=== PATIENT | female | born 1925 | race Caucasian/White ===

== ENCOUNTER 2017-07-16 17:29 | Emergency (ER) | payer MEDICARE, MEDICAID ==
--- NOTE | 2017-07-16 20:17 | EDM.PDOC ---
ED HPI GENERAL MEDICAL PROBLEM - General Chief Complaint: Chest Pain Stated Complaint: CHEST PAIN Time Seen by Provider: 07/16/17 17:47 Source of Information: Reports: Patient, EMS, Family History Limitations: Reports: No Limitations - History of Present Illness INITIAL COMMENTS - FREE TEXT/NARRATIVE: 89 y.o w f with H/O CAD came to the ed after she had sever SSCP, nonradiating with diaphoresis, SOB and being very pale as per family. EMS was called, gave 4 baby ASA (324 mg) and the pain subsided as the patient arrived here in the ED. Pt says she is in her usual state of health. She was told several times, lawrence has a 89% blockage of her heart arteries. She was advised for stent placement but refused so far. She did not receive NIG as per EMS. Her BP was 129/63 Pulse 67 Temp 36.8 O2 sat 95% on RA RR 18 Onset Date: 07/16/17 Onset Time: 17:00 Duration: Minutes:, Intermittent Location: Reports: Chest Quality: Reports: Ache, Burning, Dull, Pressure, Same as Previous Episode, Throbbing Severity: Moderate Improves with: Reports: Medication Worsens with: Reports: None Context: Reports: Other (H/O CAD) Associated Symptoms: Reports: Chest Pain, Diaphoresis, Loss of Appetite, Nausea/ Vomiting, Shortness of Breath Treatments AVIATION OPERATIONS SPECIALIST: Reports: Other (see below) (ASA 324 mg) bilateral arms Pain Score (Numeric/FACES): 1 - Related Data Allergies Allergy/AdvReac Type Severity Reaction Status Date / Time No Known Allergies Allergy Verified 07/16/17 17:46 Home Meds: Home Meds . 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 - Past Surgical History GI Surgical History: Reports: Appendectomy, Cholecystectomy Female Surgical History: Reports: Section Other Female Surgeries/Procedures: CS-3x Social & Family History - Family History Family Medical History: Noncontributory - Tobacco Use Smoking Status *Q: Never Smoker Second Hand Smoke Exposure: Yes - Caffeine Use Caffeine Use: Reports: Coffee - Recreational Drug Use Recreational Drug Use: No ED ROS GENERAL - Review of Systems Review Of Systems: See Below Constitutional: Reports: No Symptoms HEENT: Reports: No Symptoms Respiratory: Reports: No Symptoms Cardiovascular: Reports: No Symptoms Endocrine: Reports: No Symptoms GI/Abdominal: Reports: No Symptoms : Reports: No Symptoms Musculoskeletal: Reports: No Symptoms Skin: Reports: No Symptoms Neurological: Reports: No Symptoms Psychiatric: Reports: No Symptoms Hematologic/Lymphatic: Reports: No Symptoms Immunologic: Reports: No Symptoms ED EXAM, GENERAL - Physical Exam Exam: See Below Exam Limited By: No Limitations General Appearance: Alert, WD/WN, No Apparent Distress (Pain free on arrival to the ed) Eye Exam: Bilateral Eye: Normal Inspection Ears: Normal External Exam Ear Exam: Bilateral Ear: Auricle Normal Nose: Normal Inspection, Normal Mucosa Throat/Mouth: Normal Inspection, Normal Lips, Normal Voice, No Airway Compromise Head: Atraumatic, Normocephalic Neck: Normal Inspection, Supple, Non-Tender, Full Range of Motion Respiratory/Chest: No Respiratory Distress, Lungs Clear, Normal Breath Sounds, No Accessory Muscle Use, Chest Non-Tender Cardiovascular: Normal Peripheral Pulses, Regular Rate, Rhythm, No Edema Peripheral Pulses: 1+: Brachial (L) GI/Abdominal: Normal Bowel Sounds, Soft, Non-Tender, No Organomegaly, No Abnormal Bruit (Female) Exam: Deferred Rectal (Female) Exam: Deferred Back Exam: Normal Inspection, Full Range of Motion Extremities: Normal Inspection, Normal Range of Motion, Non-Tender, No Pedal Edema, Normal Capillary Refill Neurological: Alert, Oriented, CN II-XII Intact, Normal Cognition, No Motor/ Sensory Deficits Psychiatric: Normal Affect, Normal Mood Skin Exam: Warm, Dry, Intact, Normal Color, No Rash Lymphatic: No Adenopathy EKG INTERPRETATION EKG Date: 07/16/17 Time: 17:40 Rhythm: NSR Rate (Beats/Min): 68 [place]: Normal P-Wave: Present QRS: Normal ST-T: Normal QT: Normal Comparison: NA - No Prior EKG Course - Vital Signs Text/Narrative:: 89 y.o w f with H/O CAD came to the ed after she had sever SSCP, nonradiating with diaphoresis, SOB and being very pale as per family for 30 min. EMS was called, gave 4 baby ASA (324 mg) and the pain subsided as the patient arrived here in the ED. Pt says she is in her usual state of health. She was told several times, lawrence has a 89% blockage of her heart arteries. She was advised for stent placement but refused so far. She did not receive NIG as per EMS. Her BP was 129/63 Pulse 67 Temp 36.8 O2 sat 95% on RA RR 18, Pt is not on Coumadin PE: 89 y.o.w.f with h/o CAD came to the ed after an episode of severe SSCP for 30 min while sitting in a chair with diaphoresis, pallor and SOB with subsided AVIATION OPERATIONS SPECIALIST after ASA was given by the EMS personal. Pt is not on blood thinners. Imaging: CXR: NAD Labs: Troponin 0.048 INR 1.08 CBC NL, Na, Ka Cr. BUN all nl EKG: NSR, no ST/T wave changes Impression: Chest pain, H/O CAD Tx: ASA 324 AVIATION OPERATIONS SPECIALIST by EMS. Heparin drip with bolus 8.35 pm: Consultation: Dr. Shukla: If pt agrees for STENT placement if indicated, sent pt to [place]. 8.55 pm Consultation: Dr. Nguyen, [facility], [facility]: Start Heparin Drip with Bolus, then transfer to [facility]. Reexam: Pt was stable, pain free Plan: Transfer to [facility] by EMS Last Recorded V/S: Last Vital Signs Temp 36.4 C 07/16/17 17:47 Pulse 64 07/16/17 20:20 Resp 18 07/16/17 20:20 BP 130/55 L 07/16/17 20:20 Pulse Ox 97 07/16/17 20:20 - Orders/Labs/Meds Orders: Active Orders 24 hr Category Date Time Status EKG Documentation Completion [RC] ASDIRECTED Care 07/16/17 17:42 Active UA W/MICROSCOPIC [URIN] Stat Lab 07/16/17 21:28 Ordered EKG 12 Lead [EK] Routine Ther 07/16/17 17:41 Ordered Labs: Laboratory Tests 07/16/17 07/16/17 07/16/17 Range/Units 17:50 17:50 17:50 WBC 9.6 (4.5-12.0) X10-3/uL RBC 4.37 (3.23-5.20) x10(6)uL Hgb 13.0 (11.5-15.5) g/dL Hct 38.7 (30.0-51.3) % MCV 88.7 (80-96) fL MCH 29.7 (27.7-33.6) pg MCHC 33.5 (32.2-35.4) g/dL RDW 14.2 (11.5-15.5) % Plt Count 179 (125-369) X10(3)uL MPV 9.3 (7.4-10.4) fL Neut % (Auto) 75.9 (46-82) % Lymph % (Auto) 12.4 L (13-37) % [place] % (Auto) 8.5 (4-12) % Eos % (Auto) 2 (1.0-5.0) % Baso % (Auto) 1 (0-2) % Neut # (Auto) 7.3 (1.6-8.3) # Lymph # (Auto) 1.2 (0.6-5.0) # Pierce # (Auto) 0.8 (0.0-1.3) # Eos # (Auto) 0.2 (0.0-0.8) # Baso # (Auto) 0.1 (0.0-0.2) # PT (8.7-11.1) INR (0.89-1.13) Sodium 142 (135-145) mmol/L Potassium 3.9 (3.5-5.3) mmol/L Chloride 104 (100-110) mmol/L Carbon Dioxide 30 (21-32) mmol/L BUN 20 H (7-18) mg/dL Creatinine 1.2 H (0.55-1.02) mg/dL Est Cr Clr Drug Dosing TNP Estimated GFR (MDRD) 42 L (>60) BUN/Creatinine Ratio 16.7 (9-20) Glucose 131 H (80-116) mg/dL Calcium 9.1 (8.6-10.2) mg/dL Troponin I 0.048 (<0.017-0.056) ng/mL Urine Color (YELLOW) Urine Appearance (CLEAR) Urine pH (5.0-6.5) Ur Specific [place] (1.010-1.025) Urine Protein (NEGATIVE) mg/dL Urine Glucose (UA) (NEGATIVE) mg/dL Urine Ketones (NEGATIVE) mg/dL Urine Occult Blood (NEGATIVE) Urine Nitrite (NEGATIVE) Urine Bilirubin (NEGATIVE) Urine Urobilinogen (NEGATIVE) mg/dL Ur Leukocyte Esterase (NEGATIVE) Urine RBC (0) Urine WBC (0) Ur Squamous Epith Cells (NS,R,O) Urine Bacteria (NS) Hyaline Casts (NS) 07/16/17 07/16/17 Range/Units 17:50 21:28 WBC (4.5-12.0) X10-3/uL RBC (3.23-5.20) x10(6)uL Hgb (11.5-15.5) g/dL Hct (30.0-51.3) % MCV (80-96) fL MCH (27.7-33.6) pg MCHC (32.2-35.4) g/dL RDW (11.5-15.5) % Plt Count (125-369) X10(3)uL MPV (7.4-10.4) fL Neut % (Auto) (46-82) % Lymph % (Auto) (13-37) % Pierce % (Auto) (4-12) % Eos % (Auto) (1.0-5.0) % Baso % (Auto) (0-2) % Neut # (Auto) (1.6-8.3) # Lymph # (Auto) (0.6-5.0) # Pierce # (Auto) (0.0-1.3) # Eos # (Auto) (0.0-0.8) # Baso # (Auto) (0.0-0.2) # PT 10.9 (8.7-11.1) INR 1.08 (0.89-1.13) Sodium (135-145) mmol/L Potassium (3.5-5.3) mmol/L Chloride (100-110) mmol/L Carbon Dioxide (21-32) mmol/L BUN (7-18) mg/dL Creatinine (0.55-1.02) mg/dL Est Cr Clr Drug Dosing Estimated GFR (MDRD) (>60) BUN/Creatinine Ratio (9-20) Glucose (80-116) mg/dL Calcium (8.6-10.2) mg/dL Troponin I (<0.017-0.056) ng/mL Urine Color Yellow (YELLOW) Urine Appearance Clear (CLEAR) Urine pH 5.0 (5.0-6.5) Ur Specific [place] 1.020 (1.010-1.025) Urine Protein Trace (NEGATIVE) mg/dL Urine Glucose (UA) Normal (NEGATIVE) mg/dL Urine Ketones Negative (NEGATIVE) mg/dL Urine Occult Blood Negative (NEGATIVE) Urine Nitrite Negative (NEGATIVE) Urine Bilirubin Negative (NEGATIVE) Urine Urobilinogen Normal (NEGATIVE) mg/dL Ur Leukocyte Esterase Negative (NEGATIVE) Urine RBC 10-20 H (0) Urine WBC 0-5 (0) Ur Squamous Epith Cells Moderate H (NS,R,O) Urine Bacteria Moderate H (NS) Hyaline Casts Few H (NS) Meds: Medications Discontinued Medications Generic Name Dose Route Start Last Admin Trade Name Freq PRN Reason Stop Dose Admin Heparin Sodium (Porcine) 4,000 units 07/16/17 21:08 07/16/17 21:16 Heparin Sodium IVPUSH 07/16/17 21:09 4,000 units .BOLUS ONE Administration Heparin Sodium/Sodium Chloride 25,000 units in 500 mls @ 16.329 mls/hr 21:15 07/16/17 21:26 Heparin 25,000 Units In 1/2 Ns 500 Ml IV 12 units/kg/hr TITRATE RACHELLE 16.329 mls/hr Administration Protocol 12 UNITS/KG/HR Departure - Departure Time of Disposition: 20:00 Disposition: DC/Tfer to Acute Hospital 02 Reason for Transfer *Q: 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
[2017-07-16] MEDS ORDERED: Heparin Sodium 5,000 Units/ML Vial IVPUSH ONE (21:08)
[2017-07-16] MEDS ORDERED: Heparin Sodium/0.45% NaCl 25,000 UNITS/500 ML BAG IV SCH (21:15)
--- NOTE | 2017-07-17 11:41 | CR ---
INDICATION: Chest pain. CHEST: An AP portable view of the chest 07/16/2017 was compared with 04/02/2014 , again revealing the heart to be enlarged with median sternotomy and calcified aorta. Overlying EKG leads are noted. Localized eventration likely, again at the right diaphragm. Heavy markings are noted at the lung bases, but particularly on the left, making it difficult to exclude areas of patchy bronchopneumonia and/or fibrosis. The upper lung cisneros were normal in appearance. IMPRESSION: 1. While no definite acute process is seen, it is difficult to exclude patchy bronchopneumonia, especially at the left lung base - correlate clinically. 2. ASHD with cardiomegaly and post median sternotomy change. MTDD
== END 2017-07-16 21:52 ==
LOC: FB.ED 17:29
DX: I25.10 Atherosclerotic heart disease of native coronary artery without angina pectoris (principal); I10 Essential (primary) hypertension; Z77.22 Contact with and (suspected) exposure to environmental tobacco smoke (acute) (chronic)
CPT/HCPCS: 36415; 71045; 80048; 81001; 84484; 85025; 85610; 93005; 96365; 96376; 99285; J1644